=== PATIENT | female | born 2000 | race Caucasian/White ===

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

== ENCOUNTER 2018-06-23 21:21 | Emergency (ER) | payer MEDICAID, OTHER ==
[2018-06-23 21:22] VITALS: BMI 35.4
[2018-06-23 22:08] VITALS: RESP 16; TEMP 99.2
[2018-06-23 22:51] LABS: BASO # 0.1 K/uL (0.0-0.2); BASO % 0.4 % (0.0-2.0); EOS # 0.3 K/uL (0.0-0.7); EOS % 2.3 % (0.0-4.0); LYMPH # 4.5 K/uL (1.0-4.3); LYMPH % 33.3 % (20.0-40.0); MEAN CELL VOLUME 84.9 fL (81.0-99.0); MEAN CORPUSCULAR HEMOGLOBIN 28.6 pg (27.0-31.0); MEAN CORPUSCULAR HGB CONC 33.7 g/dL (33.0-37.0); MEAN PLATELET VOLUME 7.9 fL (7.2-11.7); MONO % 7.1 % (0.0-10.0); NEUT # 7.7 K/uL (1.8-7.0); NEUT % 56.9 % (50.0-75.0); RBC 4.89 Mil/uL (3.80-5.20); RED CELL DISTRIBUTION WIDTH 12.9 % (11.5-14.5); WHITE BLOOD COUNT 13.5 K/uL (4.8-10.8)
[2018-06-23 23:02] LABS: SQUAMOUS EPITHIAL 3 /hpf (0-5); URINE BACTERIA RARE (<OCC); URINE BILIRUBIN NEGATIVE (NEGATIVE); URINE BLOOD NEGATIVE (NEGATIVE); URINE CLARITY Clear (Clear); URINE COLOR Yellow (YELLOW); URINE GLUCOSE (UA) NORMAL (Normal); URINE LEUKOCYTE ESTERASE NEG Leu/uL (Negative); URINE PROTEIN NEGATIVE (NEGATIVE); URINE UROBILINOGEN NORMAL mg/dL (0.2-1.0)
[2018-06-23 23:04] LABS: ALB/GLOB RATIO 1.4 (1.0-2.1); ALBUMIN 4.7 g/dL (3.5-5.0); ALT/SGPT 63 U/L (9-52); AST/SGOT 40 U/L (14-36); BLOOD UREA NITROGEN 11 mg/dL (7-17); CALCIUM 9.5 mg/dl (8.6-10.4); GFR NON-AFRICAN AMERICAN > 60; LIPASE 75 U/L (23-300)
[2018-06-24 00:27] VITALS: BP 122/82; PULSE 75; O2SAT 100
--- NOTE | 2018-06-24 02:04 | C.PDOC ---
History Of Present Illness 17 y/o female presents to the ED complaining of left-sided flan pain that began earlier today. The patient states she has been feeling slightly nauseas. She denies any vomiting, vaginal bleeding, abdominal pain, hematuria or urinary symptoms. Time Seen by Provider: 06/23/18 22:37 Chief Complaint (Nursing): Abdominal Pain History Per: Patient History/Exam Limitations: no limitations Onset/Duration Of Symptoms: Hrs Current Symptoms Are (Timing): Still Present Location Of Pain/Discomfort: Other (left sided flank pain) Quality Of Discomfort: "Pain" Associated Symptoms: Nausea. denies: Fever, Vomiting, Diarrhea, Urinary Symptoms Recent travel outside of the [place]: No Past Medical History Reviewed: Historical Data, Nursing Documentation, Vital Signs Vital Signs: Last Vital Signs Temp 99.2 F 06/23/18 22:03 Pulse 75 06/24/18 00:27 Resp 16 06/24/18 00:27 BP 122/82 06/24/18 00:27 Pulse Ox 100 06/24/18 02:09 - Medical History PMH: HTN Denies: Anxiety Surgical History: No Surg Hx Family History: States: Unknown Family Hx, Diabetes - Social History Hx Tobacco Use: No Hx Alcohol Use: Yes Hx Substance Use: No - Immunization History Hx Tetanus Toxoid Vaccination: No Hx Influenza Vaccination: No Hx Pneumococcal Vaccination: No Review Of Systems Except As Marked, All Systems Reviewed And Found Negative. Constitutional: Negative for: Fever Gastrointestinal: Positive for: Nausea, Other (Flank lowry). Negative for: Vomiting, Abdominal Pain, Diarrhea Genitourinary: Positive for: Vaginal Discharge. Negative for: Dysuria, Hematuria, Vaginal Bleeding Physical Exam - Physical Exam Appears: Well, Non-toxic, No Acute Distress Skin: Normal Color, Warm, Dry Head: Atraumatic, Normacephalic Eye(s): bilateral: PERRL, EOMI Ear(s): Bilateral: Normal Oral Mucosa: Moist Neck: Supple Chest: Symmetrical Cardiovascular: Rhythm Regular, No Murmur Respiratory: Normal Breath Sounds, No Rales, No Rhonchi, No Wheezing Gastrointestinal/Abdominal: Soft, Tenderness (mild LLQ tenderness), No Distention Back: CVA Tenderness (left CVA tenderness) Extremity: Normal ROM Extremity: Bilateral: Normal Color And Temperature, Normal ROM Neurological/Psych: Oriented x3, Normal Speech ED Course And Treatment - Laboratory Results Result Diagrams: 06/23/18 22:40 06/23/18 22:40 O2 Sat by Pulse Oximetry: 100 (RA) Pulse Ox Interpretation: Normal - CT Scan/US Abdomen & Pelvis Other Rad Studies (CT/US): Read By Radiologist, Radiology Report Reviewed CT/US Interpretation: FINDINGS: Lung bases: Unremarkable. No mass. No consolidation. ABDOMEN: Liver: Hepatic steatosis. Gallbladder and bile ducts : Unremarkable. No calcified stones. No ductal dilation. Pancreas: Unremarkable. No ductal dilation. Spleen: Unremarkable. No splenomegaly. Adrenals: Unremarkable. No mass. Kidneys and ureters: Unremarkable. No obstructing stones. No hydronephrosis. Stomach and bowel: Fluid-filled small bowel loops. PELVIS: Appendix: No findings to suggest acute appendicitis. Bladder: Unremarkable. No stones. Reproductive: Unremarkable as visualized. Intraperitoneal space: Unremarkable. No free air. No significant fluid collection. Bones/joints: No acute fracture. No dislocation. Soft tissues: Unremarkable. Vasculature: Unremarkable. No abdominal aortic aneurysm. Lymph nodes: Multiple, mildly enlarged mesenteric lymph nodes. Findings may reflect mesenteric. adenitis. IMPRESSION: 1. CT findings suggestive of mesenteric adenitis and enteritis. 2. No left hydronephrosis, renal, or definite ureteral calculus. 3. Remainder of findings as above Medical Decision Making Medical Decision Making: Impression: 17 y/o female complaining of left-sided flank pain. Left CVA tenderness. Mild LLQ tenderness Plan: -CT Abdomen & Pelvis -CMP -Urine Culture -Lipase -CBC -UA Disposition - Disposition Referrals: [facility] [Outside] [facility] [Outside] [facility] [Outside] Disposition: HOME/ ROUTINE Disposition Time: 00:10 Condition: GOOD Additional Instructions: JJ PLAZA, thank you for letting us take care of you today. The emergency medical care you received today was directed at your acute symptoms. If you were prescribed any medication, please fill it and take as directed. It may take several days for your symptoms to resolve. Return to the Emergency Department if your symptoms worsen, do not improve, or if you have any other problems. Please contact your doctor or call one of the physicians/clinics you have been referred to that are listed on the Patient Visit Information form that is included in your discharge packet. Bring any paperwork you were given at discharge with you along with any medications you are taking to your follow up visit. Our treatment cannot replace ongoing medical care by a primary care provider outside of the emergency department. Thank you for allowing the natue team to be part of your care today. Follow up with the clinic in 3-5 days for re-evaluation and further management. Prescriptions: Ibuprofen [Motrin] 600 mg PO Q6 PRN #20 tab PRN Reason: Pain, Moderate (4-7) Instructions: Acute Abdomen (Belly Pain) Forms: Interface[employer] (Thai) - Clinical Impression Clinical Impression: Enteritis - PA / CREW LEAD / Resident Statement MD/DO has reviewed & agrees with the documentation as recorded. - Scribe Statement The provider has reviewed the documentation as recorded by the Scribe (Lisa Garcia) Provider Attestation: All medical record entries made by the Scribe were at my direction and personally dictated by me. I have reviewed the chart and agree that the record accurately reflects my personal performance of the history, physical exam, medical decision making, and the department course for this patient. I have also personally directed, reviewed, and agree with the discharge instructions and disposition.
--- NOTE | 2018-06-24 09:21 | CT ---
Date of service: 06/23/2018 PROCEDURE: CT Abdomen and Pelvis with Oral contrast. HISTORY: left flank pain COMPARISON: None. TECHNIQUE: Contiguous axial images of the abdomen and pelvis without oral or IV contrast . Coronal and Sagittal reformats generated. Radiation dose: Total exam DLP = 1164.07 mGy-cm. This CT exam was performed using one or more of the following dose reduction techniques: Automated exposure control, adjustment of the mA and/or kV according to patient size, and/or use of iterative reconstruction technique. FINDINGS: LOWER THORAX: Unremarkable. LIVER: Liver exhibits normal size measuring approximately 17 cm in CC dimension. Moderate fatty hepatic infiltration. . No obvious hepatic masses, collections or calcification GALLBLADDER AND BILE DUCTS: Unremarkable. No obvious intraluminal gallbladder calculi. PANCREAS: Unremarkable. No mass. No ductal dilatation. SPLEEN: Unremarkable. No splenomegaly. ADRENALS: Unremarkable. KIDNEYS AND URETERS: Unremarkable. No stone or hydronephrosis. BLADDER: Urinary bladder is incompletely distended which part accounts thick-walled appearance however correlation with urinalysis recommended to exclude UTI/ cystitis. REPRODUCTIVE: Unremarkable. APPENDIX: Appendix is not seen with certainty however no evidence to suggest acute appendicitis. BOWEL: Unremarkable. No obstruction. No gross mural thickening. PERITONEUM: Unremarkable. No fluid collection. No free air. Tiny fat containing umbilical hernia. LYMPH NODES: Unremarkable. No enlarged lymph nodes. There are multiple mesenteric lymph nodes all with few prominent mesenteric lymph nodes right lower quadrant of the abdomen. Rule out viral illness or mesenteric adenitis. VASCULATURE: Unremarkable. No aortic aneurysm. BONES: No fracture or destructive lesion. OTHER FINDINGS: None. IMPRESSION: There are multiple small to medium-sized mesenteric lymph nodes with a cluster of prominent nodes in the right lower quadrant of the abdomen. Findings consistent with viral or mesenteric adenitis. Moderate fatty hepatic infiltration. No evidence of nephrolithiasis or hydronephrosis.
== END 2018-06-24 00:28 | disposition home or self-care (01) ==
LOC: C.ER 21:21
DX: K52.9 Noninfective gastroenteritis and colitis, unspecified (principal)